=== PATIENT | female | born 1965 | race Caucasian/White ===

== ENCOUNTER 2024-10-10 15:56 | Inpatient (IN) | payer MEDICARE ==
[2024-10-10] MEDS ORDERED: Dextrose 50% Abboject 50 ML SYRINGE SLOW IVP PRN (16:30)
[2024-10-10] MEDS ORDERED: Glucagon 1 MG/ML KIT IM PRN (16:30)
[2024-10-10 18:30] VITALS: BMI 38.0
[2024-10-10] MEDS: Acetaminophen 325 MG TAB PO PRN (18:52)
[2024-10-10] MEDS: Cyclobenzaprine 10 MG TAB PO PRN (20:37)
[2024-10-10] MEDS: Gabapentin 300 MG CAP PO SCH (20:39)
[2024-10-10 20:58] LABS: #Basophils 0.05 10x3/uL (0.0-0.2); #Eosinophils 0.24 10x3/uL (0.0-0.7); #Monocytes 0.58 10x3/uL (0.11-0.59); #Neutrophils 3.24 10x3/uL (1.40-6.50); %Basophils 0.8 % (0.0-1.0); %Eosinophils 3.9 % (0.0-10.0); %Lymphocytes 32.5 % (21.0-51.0); %Monocytes 9.4 % (0.0-10.0); %Neutrophils 52.7 % (42.0-75.0); Hematocrit 39.9 % (36.0-47.0); Hemoglobin 12.5 g/dL (12.0-16.0); Mean Corpuscular Hemoglobin 28.8 pg (27.0-31.0); Mean Corpuscular Volume 91.9 fL (78.0-98.0); Platelet Count 306 10x3/uL (130-400); Red Blood Cell (RBC) Count 4.34 mill/uL (4.20-5.40); White Blood Cell (WBC) Count 6.15 10x3/uL (4.8-10.8)
[2024-10-10 21:14] LABS: CRP, High Sensitivity at Bryan 0.10 mg/dL (< or = 0.5)
[2024-10-10 21:15] LABS: ALT (SGPT) 22 U/L (Less than 34); AST (SGOT) 29 U/L (11-34); Albumin 3.3 g/dL (3.1-4.5); Alkaline Phosphatase 92 U/L (40-110); Anion Gap 15 mmol/L (10-20); BUN (Urea Nitrogen) 51 mg/dL (9.8-20.1); Bilirubin, Total 0.2 mg/dL (0.3-1.2); Calc. Creatinine Clearance 42 mL/min (70-130); Calcium 9.5 mg/dL (7.8-10.44); Carbon Dioxide 23 mmol/L (22-29); Cardiac Risk 5.7 (Less than 4.5); Chloride 105 mmol/L (98-107); Cholesterol 218 mg/dl (< 200 Desired); Globulin 2.9 g/dL (2.4-3.5); Glucose 224 mg/dL (70-105); HDL Cholesterol 38 mg/dL (>60 Neg Risk); LDL Cholesterol, Calculated 149 mg/dL; Potassium 5.3 mmol/L (3.5-5.1); Sodium 138 mmol/L (136-145); Triglycerides 153 mg/dL (Less than 150)
[2024-10-10] MEDS: Vancomycin (BATCH) 2.5 GM in Premix 1 BAG IVPB SCH (22:25)
[2024-10-10 22:53] LABS: Magnesium 1.7 mg/dL (1.6-2.6)
[2024-10-10] MEDS: HYDROcodone/Acetaminophen 5/325 mg Tablet PO SCH (23:05)
[2024-10-10 23:37] LABS: Anion Gap 18 mmol/L (10-20); BUN (Urea Nitrogen) 50 mg/dL (9.8-20.1); Calc. Creatinine Clearance 42 mL/min (70-130); Calcium 9.7 mg/dL (7.8-10.44); Carbon Dioxide 19 mmol/L (22-29); Chloride 105 mmol/L (98-107); Glucose 228 mg/dL (70-105); Potassium 5.0 mmol/L (3.5-5.1); Sodium 137 mmol/L (136-145)
[2024-10-11] MEDS: Metoprolol Succinate XL 50 MG ER.TAB PO SCH (05:17)
[2024-10-11 06:49] LABS: #Basophils 0.04 10x3/uL (0.0-0.2); #Eosinophils 0.33 10x3/uL (0.0-0.7); #Monocytes 0.57 10x3/uL (0.11-0.59); #Neutrophils 2.51 10x3/uL (1.40-6.50); %Basophils 0.7 % (0.0-1.0); %Eosinophils 6.1 % (0.0-10.0); %Lymphocytes 35.2 % (21.0-51.0); %Monocytes 10.6 % (0.0-10.0); %Neutrophils 46.8 % (42.0-75.0); Hematocrit 37.4 % (36.0-47.0); Hemoglobin 11.7 g/dL (12.0-16.0); Mean Corpuscular Hemoglobin 28.5 pg (27.0-31.0); Mean Corpuscular Volume 91.0 fL (78.0-98.0); Platelet Count 280 10x3/uL (130-400); Red Blood Cell (RBC) Count 4.11 mill/uL (4.20-5.40); White Blood Cell (WBC) Count 5.37 10x3/uL (4.8-10.8)
[2024-10-11 07:05] LABS: Vancomycin, Random 38.8 ug/mL (See Comment)
[2024-10-11 07:06] LABS: ALT (SGPT) 19 U/L (Less than 34); AST (SGOT) 25 U/L (11-34); Albumin 3.0 g/dL (3.1-4.5); Alkaline Phosphatase 82 U/L (40-110); Anion Gap 13 mmol/L (10-20); BUN (Urea Nitrogen) 51 mg/dL (9.8-20.1); Bilirubin, Total 0.2 mg/dL (0.3-1.2); Calc. Creatinine Clearance 50 mL/min (70-130); Calcium 8.7 mg/dL (7.8-10.44); Carbon Dioxide 24 mmol/L (22-29); Chloride 109 mmol/L (98-107); Globulin 2.6 g/dL (2.4-3.5); Glucose 124 mg/dL (70-105); Potassium 4.7 mmol/L (3.5-5.1); Sodium 141 mmol/L (136-145)
[2024-10-11] MEDS ORDERED: Enoxaparin 40 MG (0.4 mL) SYRINGE SC SCH (09:00)
[2024-10-11] MEDS: Heparin 5,000 UNITS/ML VIAL SC SCH (09:57)
[2024-10-11] MEDS ORDERED: fentaNYL PF 100 MCG/2 ML SYRINGE ONE (14:42)
[2024-10-11] MEDS ORDERED: PROPOFOL 20 ML ONE (14:42)
[2024-10-11] MEDS ORDERED: Lidocaine 1% PF 5 ML VIAL ONE (14:43)
[2024-10-11] MEDS ORDERED: Ondansetron PF 4 MG/2 ML Vial ONE (14:43)
[2024-10-11] MEDS ORDERED: Lidocaine 2% 6 ML (Jelly) SYR ONE (14:46)
[2024-10-11] MEDS ORDERED: SUCCINYLCHOLINE/SOD CL,ISO/PF 200 MG/10 ML SYRINGE FS ONE (14:49)
[2024-10-11] MEDS: Insulin Glargine 30 UNITS/0.3 ML VIAL SC SCH (20:22)
[2024-10-12 06:55] LABS: #Basophils 0.03 10x3/uL (0.0-0.2); #Eosinophils 0.07 10x3/uL (0.0-0.7); #Monocytes 0.47 10x3/uL (0.11-0.59); #Neutrophils 5.70 10x3/uL (1.40-6.50); %Basophils 0.4 % (0.0-1.0); %Eosinophils 0.9 % (0.0-10.0); %Lymphocytes 17.3 % (21.0-51.0); %Monocytes 6.2 % (0.0-10.0); %Neutrophils 74.8 % (42.0-75.0); Hematocrit 36.3 % (36.0-47.0); Hemoglobin 11.7 g/dL (12.0-16.0); Mean Corpuscular Hemoglobin 29.1 pg (27.0-31.0); Mean Corpuscular Volume 90.3 fL (78.0-98.0); Platelet Count 289 10x3/uL (130-400); Red Blood Cell (RBC) Count 4.02 mill/uL (4.20-5.40); White Blood Cell (WBC) Count 7.62 10x3/uL (4.8-10.8)
[2024-10-12 07:10] LABS: ALT (SGPT) 21 U/L (Less than 34); AST (SGOT) 29 U/L (11-34); Albumin 3.1 g/dL (3.1-4.5); Alkaline Phosphatase 78 U/L (40-110); Anion Gap 12 mmol/L (10-20); BUN (Urea Nitrogen) 32 mg/dL (9.8-20.1); Bilirubin, Total 0.2 mg/dL (0.3-1.2); Calc. Creatinine Clearance 62 mL/min (70-130); Calcium 8.1 mg/dL (7.8-10.44); Carbon Dioxide 24 mmol/L (22-29); Chloride 109 mmol/L (98-107); Globulin 2.6 g/dL (2.4-3.5); Glucose 131 mg/dL (70-105); Potassium 4.2 mmol/L (3.5-5.1); Sodium 141 mmol/L (136-145)
[2024-10-12 15:30] VITALS: BMI 38.0
[2024-10-12] MEDS: Heparin 5,000 UNITS/ML VIAL SC SCH (17:11)
[2024-10-13 06:02] LABS: #Basophils 0.04 10x3/uL (0.0-0.2); #Eosinophils 0.34 10x3/uL (0.0-0.7); #Monocytes 0.58 10x3/uL (0.11-0.59); #Neutrophils 2.93 10x3/uL (1.40-6.50); %Basophils 0.6 % (0.0-1.0); %Eosinophils 5.0 % (0.0-10.0); %Lymphocytes 42.3 % (21.0-51.0); %Monocytes 8.5 % (0.0-10.0); %Neutrophils 43.2 % (42.0-75.0); Hematocrit 38.1 % (36.0-47.0); Hemoglobin 12.1 g/dL (12.0-16.0); Mean Corpuscular Hemoglobin 28.9 pg (27.0-31.0); Mean Corpuscular Volume 90.9 fL (78.0-98.0); Platelet Count 273 10x3/uL (130-400); Red Blood Cell (RBC) Count 4.19 mill/uL (4.20-5.40); White Blood Cell (WBC) Count 6.79 10x3/uL (4.8-10.8)
[2024-10-13 06:11] LABS: ALT (SGPT) 21 U/L (Less than 34); AST (SGOT) 26 U/L (11-34); Albumin 3.2 g/dL (3.1-4.5); Alkaline Phosphatase 81 U/L (40-110); Anion Gap 16 mmol/L (10-20); BUN (Urea Nitrogen) 36 mg/dL (9.8-20.1); Bilirubin, Total 0.2 mg/dL (0.3-1.2); Calc. Creatinine Clearance 59 mL/min (70-130); Calcium 8.2 mg/dL (7.8-10.44); Carbon Dioxide 23 mmol/L (22-29); Chloride 108 mmol/L (98-107); Globulin 2.8 g/dL (2.4-3.5); Glucose 90 mg/dL (70-105); Potassium 3.9 mmol/L (3.5-5.1); Sodium 143 mmol/L (136-145)
[2024-10-13 06:16] LABS: Vancomycin, Random 16.4 ug/mL (See Comment)
[2024-10-13 08:05] VITALS: BP 150/80; TEMP 97.5
== END 2024-10-13 13:50 | disposition home or self-care (01) | DRG 617 ==
LOC: T4-A 15:56
PROVIDERS: ADMIT Student in an Organized Health Care Education/Training Program; ATTEND Student in an Organized Health Care Education/Training Program
PROC: 3E03329 Introduction of Other Anti-infective into Peripheral Vein, Percutaneous Approach (ICD-10-PCS; 2024-10-10)
PROC: 0Y6Y0Z1 Detachment at Left 5th Toe, High, Open Approach (ICD-10-PCS; principal; 2024-10-12)
DX: E11.69 Type 2 diabetes mellitus with other specified complication (principal); L97.819 Non-pressure chronic ulcer of other part of right lower leg with unspecified severity; M86.172 Other acute osteomyelitis, left ankle and foot; E11.621 Type 2 diabetes mellitus with foot ulcer; N17.9 Acute kidney failure, unspecified; E87.5 Hyperkalemia; N18.32 Chronic kidney disease, stage 3b; E11.22 Type 2 diabetes mellitus with diabetic chronic kidney disease; E11.65 Type 2 diabetes mellitus with hyperglycemia; E03.9 Hypothyroidism, unspecified; D50.9 Iron deficiency anemia, unspecified; Z89.432 Acquired absence of left foot; Z98.890 Other specified postprocedural states; Z79.899 Other long term (current) drug therapy; Z90.49 Acquired absence of other specified parts of digestive tract
CPT/HCPCS: 36415; 36416; 80053; 80061; 80202; 83036; 83605; 83735; 84100; 84443; 85025; 86141; 87040; 87070; 87205; 97139; J0665; J0692; J1100; J1644; J1815; J2405; J2704; J3010; J3373; J7030; J7050

== ENCOUNTER 2024-10-26 14:01 | Emergency (ER) | payer MEDICARE ==
[2024-10-26] MEDS ORDERED: Ondansetron PF 4 MG/2 ML Vial ONE (15:37)
[2024-10-26 15:45] LABS: #Basophils 0.05 10x3/uL (0.0-0.2); #Eosinophils 0.35 10x3/uL (0.0-0.7); #Monocytes 0.74 10x3/uL (0.11-0.59); #Neutrophils 5.02 10x3/uL (1.40-6.50); %Basophils 0.6 % (0.0-1.0); %Eosinophils 4.1 % (0.0-10.0); %Lymphocytes 26.8 % (21.0-51.0); %Monocytes 8.7 % (0.0-10.0); %Neutrophils 59.4 % (42.0-75.0); Hematocrit 38.0 % (36.0-47.0); Hemoglobin 12.2 g/dL (12.0-16.0); Mean Corpuscular Hemoglobin 29.0 pg (27.0-31.0); Mean Corpuscular Volume 90.5 fL (78.0-98.0); Platelet Count 244 10x3/uL (130-400); Red Blood Cell (RBC) Count 4.20 mill/uL (4.20-5.40); White Blood Cell (WBC) Count 8.46 10x3/uL (4.8-10.8)
[2024-10-26] MEDS ORDERED: Vancomycin 1 GM/200 ML (PREMIX FOIL) BAG ONE ×2 (15:57→17:07)
[2024-10-26 16:02] LABS: ALT (SGPT) 23 U/L (Less than 34); AST (SGOT) 25 U/L (11-34); Albumin 3.1 g/dL (3.1-4.5); Alkaline Phosphatase 116 U/L (40-110); Anion Gap 16 mmol/L (10-20); BUN (Urea Nitrogen) 62 mg/dL (9.8-20.1); Bilirubin, Total 0.3 mg/dL (0.3-1.2); Calc. Creatinine Clearance 0 mL/min (70-130); Calcium 9.0 mg/dL (7.8-10.44); Carbon Dioxide 22 mmol/L (22-29); Chloride 107 mmol/L (98-107); Globulin 3.1 g/dL (2.4-3.5); Glucose 86 mg/dL (70-105); Potassium 5.2 mmol/L (3.5-5.1); Sodium 140 mmol/L (136-145)
== END 2024-10-26 18:05 | disposition home or self-care (01) ==
LOC: ERS 14:01
DX: L03.032 Cellulitis of left toe (principal); I12.9 Hypertensive chronic kidney disease with stage 1 through stage 4 chronic kidney disease, or unspecified chronic kidney disease; E11.22 Type 2 diabetes mellitus with diabetic chronic kidney disease; N18.30 Chronic kidney disease, stage 3 unspecified; I25.2 Old myocardial infarction
CPT/HCPCS: 73630 ×2; 80053; 83605; 85025; 86141; 87070; 87205; 93005; J2270; J2405; J3372; 36415; 96365; 96366; 96375

== ENCOUNTER 2024-11-17 11:28 | Inpatient (IN) | payer MEDICARE ==
[2024-11-17 13:12] LABS: #Basophils 0.04 10x3/uL (0.0-0.2); #Eosinophils 0.41 10x3/uL (0.0-0.7); #Monocytes 0.72 10x3/uL (0.11-0.59); #Neutrophils 5.50 10x3/uL (1.40-6.50); %Basophils 0.5 % (0.0-1.0); %Eosinophils 4.7 % (0.0-10.0); %Lymphocytes 23.5 % (21.0-51.0); %Monocytes 8.2 % (0.0-10.0); %Neutrophils 62.6 % (42.0-75.0); Hematocrit 35.6 % (36.0-47.0); Hemoglobin 11.5 g/dL (12.0-16.0); Mean Corpuscular Hemoglobin 29.5 pg (27.0-31.0); Mean Corpuscular Volume 91.3 fL (78.0-98.0); Platelet Count 283 10x3/uL (130-400); Red Blood Cell (RBC) Count 3.90 mill/uL (4.20-5.40); White Blood Cell (WBC) Count 8.77 10x3/uL (4.8-10.8)
[2024-11-17] MEDS ORDERED: Ketorolac Tromethamine 30 MG (1 mL) VIAL ONE (13:17)
[2024-11-17] MEDS ORDERED: Ondansetron PF 4 MG/2 ML Vial ONE (13:17)
[2024-11-17 13:34] LABS: ALT (SGPT) 22 U/L (Less than 34); AST (SGOT) 37 U/L (11-34); Albumin 3.0 g/dL (3.1-4.5); Alkaline Phosphatase 107 U/L (40-110); Anion Gap 17 mmol/L (10-20); BUN (Urea Nitrogen) 57 mg/dL (9.8-20.1); Bilirubin, Total 0.3 mg/dL (0.3-1.2); Calc. Creatinine Clearance 0 mL/min (70-130); Calcium 9.2 mg/dL (7.8-10.44); Carbon Dioxide 24 mmol/L (22-29); Chloride 104 mmol/L (98-107); Globulin 3.4 g/dL (2.4-3.5); Glucose 209 mg/dL (70-105); Potassium 5.2 mmol/L (3.5-5.1); Sodium 140 mmol/L (136-145)
[2024-11-17] MEDS ORDERED: cefTRIAXone (ROCEPHIN) 1 GM VIAL ONE (13:57)
[2024-11-17] MEDS ORDERED: VANCOMYCIN 2 GRAM/400 ML BAG ONE (13:57)
[2024-11-17] MEDS ORDERED: Senokot S 8.6-50 MG TAB PO PRN (15:43)
[2024-11-17] MEDS ORDERED: Calcium Carbonate 500 MG ChewTAB PO PRN (15:43)
[2024-11-17] MEDS ORDERED: Dextrose 50% Abboject 50 ML SYRINGE SLOW IVP PRN (17:06)
[2024-11-17] MEDS ORDERED: Glucagon 1 MG/ML KIT IM PRN (17:06)
[2024-11-17] MEDS: LOKELMA 10 GM PACKET PO SCH (17:49)
[2024-11-17] MEDS ORDERED: Pharmacy to Dose: VANC IVPB PRN (19:05)
[2024-11-17] MEDS: Gabapentin 300 MG CAP PO SCH (21:04)
[2024-11-17] MEDS: Heparin 5,000 UNITS/ML VIAL SC SCH (21:05)
[2024-11-17] MEDS: Insulin Glargine 30 UNITS/0.3 ML VIAL SC SCH (21:05)
[2024-11-17 22:38] VITALS: BMI 36.3
[2024-11-18 06:24] LABS: #Basophils Less than 0.03 10x3/uL (0.0-0.2); #Eosinophils 0.50 10x3/uL (0.0-0.7); #Monocytes 0.58 10x3/uL (0.11-0.59); #Neutrophils 3.22 10x3/uL (1.40-6.50); %Basophils 0.3 % (0.0-1.0); %Eosinophils 8.4 % (0.0-10.0); %Lymphocytes 27.1 % (21.0-51.0); %Monocytes 9.7 % (0.0-10.0); %Neutrophils 54.0 % (42.0-75.0); Hematocrit 32.0 % (36.0-47.0); Hemoglobin 10.0 g/dL (12.0-16.0); Mean Corpuscular Hemoglobin 28.9 pg (27.0-31.0); Mean Corpuscular Volume 92.5 fL (78.0-98.0); Platelet Count 246 10x3/uL (130-400); Red Blood Cell (RBC) Count 3.46 mill/uL (4.20-5.40); White Blood Cell (WBC) Count 5.97 10x3/uL (4.8-10.8)
[2024-11-18 06:45] LABS: Vancomycin, Random 20.3 ug/mL (See Comment)
[2024-11-18 07:34] LABS: ALT (SGPT) 31 U/L (Less than 34); AST (SGOT) 46 U/L (11-34); Albumin 2.4 g/dL (3.1-4.5); Alkaline Phosphatase 98 U/L (40-110); Anion Gap 13 mmol/L (10-20); BUN (Urea Nitrogen) 53 mg/dL (9.8-20.1); Bilirubin, Total 0.3 mg/dL (0.3-1.2); Calc. Creatinine Clearance 41 mL/min (70-130); Calcium 8.2 mg/dL (7.8-10.44); Carbon Dioxide 25 mmol/L (22-29); Chloride 106 mmol/L (98-107); Globulin 2.4 g/dL (2.4-3.5); Glucose 71 mg/dL (70-105); Potassium 4.7 mmol/L (3.5-5.1); Sodium 139 mmol/L (136-145)
[2024-11-18] MEDS: Metoprolol Succinate XL 50 MG ER.TAB PO SCH (09:17)
[2024-11-18] MEDS: Lisinopril 20 MG TAB PO SCH (09:18)
[2024-11-18] MEDS: Cyclobenzaprine 10 MG TAB PO PRN (09:18)
[2024-11-18] MEDS: Acetaminophen 325 MG TAB PO PRN (09:18)
[2024-11-18 12:16] VITALS: BMI 36.3
[2024-11-19 06:22] LABS: #Basophils 0.04 10x3/uL (0.0-0.2); #Eosinophils 0.54 10x3/uL (0.0-0.7); #Monocytes 0.60 10x3/uL (0.11-0.59); #Neutrophils 2.55 10x3/uL (1.40-6.50); %Basophils 0.7 % (0.0-1.0); %Eosinophils 9.3 % (0.0-10.0); %Lymphocytes 35.7 % (21.0-51.0); %Monocytes 10.3 % (0.0-10.0); %Neutrophils 43.8 % (42.0-75.0); Hematocrit 33.0 % (36.0-47.0); Hemoglobin 10.2 g/dL (12.0-16.0); Mean Corpuscular Hemoglobin 29.0 pg (27.0-31.0); Mean Corpuscular Volume 93.8 fL (78.0-98.0); Platelet Count 263 10x3/uL (130-400); Red Blood Cell (RBC) Count 3.52 mill/uL (4.20-5.40); White Blood Cell (WBC) Count 5.82 10x3/uL (4.8-10.8)
[2024-11-19 06:51] LABS: Vancomycin, Random 19.5 ug/mL (See Comment)
[2024-11-19 07:00] LABS: ALT (SGPT) 23 U/L (Less than 34); AST (SGOT) 35 U/L (11-34); Albumin 2.5 g/dL (3.1-4.5); Alkaline Phosphatase 90 U/L (40-110); Anion Gap 12 mmol/L (10-20); BUN (Urea Nitrogen) 49 mg/dL (9.8-20.1); Bilirubin, Total 0.2 mg/dL (0.3-1.2); Calc. Creatinine Clearance 40 mL/min (70-130); Calcium 8.6 mg/dL (7.8-10.44); Carbon Dioxide 26 mmol/L (22-29); Chloride 106 mmol/L (98-107); Globulin 2.9 g/dL (2.4-3.5); Glucose 45 mg/dL (70-105); Potassium 4.8 mmol/L (3.5-5.1); Sodium 139 mmol/L (136-145)
[2024-11-19] MEDS: Insulin Glargine 30 UNITS/0.3 ML VIAL SC SCH (21:57)
[2024-11-20 06:35] LABS: #Basophils 0.04 10x3/uL (0.0-0.2); #Eosinophils 0.58 10x3/uL (0.0-0.7); #Monocytes 0.65 10x3/uL (0.11-0.59); #Neutrophils 4.25 10x3/uL (1.40-6.50); %Basophils 0.6 % (0.0-1.0); %Eosinophils 8.1 % (0.0-10.0); %Lymphocytes 22.2 % (21.0-51.0); %Monocytes 9.1 % (0.0-10.0); %Neutrophils 59.7 % (42.0-75.0); Hematocrit 36.2 % (36.0-47.0); Hemoglobin 11.6 g/dL (12.0-16.0); Mean Corpuscular Hemoglobin 29.0 pg (27.0-31.0); Mean Corpuscular Volume 90.5 fL (78.0-98.0); Platelet Count 298 10x3/uL (130-400); Red Blood Cell (RBC) Count 4.00 mill/uL (4.20-5.40); White Blood Cell (WBC) Count 7.12 10x3/uL (4.8-10.8)
[2024-11-20 06:49] LABS: Vancomycin, Random 21.5 ug/mL (See Comment)
[2024-11-20 06:51] LABS: ALT (SGPT) 12 U/L (Less than 34); AST (SGOT) 26 U/L (11-34); Albumin 2.7 g/dL (3.1-4.5); Alkaline Phosphatase 96 U/L (40-110); Anion Gap 14 mmol/L (10-20); BUN (Urea Nitrogen) 44 mg/dL (9.8-20.1); Bilirubin, Total 0.2 mg/dL (0.3-1.2); Calc. Creatinine Clearance 47 mL/min (70-130); Calcium 9.1 mg/dL (7.8-10.44); Carbon Dioxide 26 mmol/L (22-29); Chloride 104 mmol/L (98-107); Globulin 3.5 g/dL (2.4-3.5); Glucose 83 mg/dL (70-105); Potassium 4.8 mmol/L (3.5-5.1); Sodium 139 mmol/L (136-145)
[2024-11-20] MEDS: HYDROcodone/Acetaminophen 5/325 mg Tablet PO PRN (23:22)
[2024-11-21 04:49] LABS: #Basophils 0.03 10x3/uL (0.0-0.2); #Eosinophils 0.64 10x3/uL (0.0-0.7); #Monocytes 0.71 10x3/uL (0.11-0.59); #Neutrophils 3.31 10x3/uL (1.40-6.50); %Basophils 0.4 % (0.0-1.0); %Eosinophils 9.0 % (0.0-10.0); %Lymphocytes 34.0 % (21.0-51.0); %Monocytes 9.9 % (0.0-10.0); %Neutrophils 46.3 % (42.0-75.0); Hematocrit 32.1 % (36.0-47.0); Hemoglobin 10.0 g/dL (12.0-16.0); Mean Corpuscular Hemoglobin 28.9 pg (27.0-31.0); Mean Corpuscular Volume 92.8 fL (78.0-98.0); Platelet Count 281 10x3/uL (130-400); Red Blood Cell (RBC) Count 3.46 mill/uL (4.20-5.40); White Blood Cell (WBC) Count 7.15 10x3/uL (4.8-10.8)
[2024-11-21 05:20] LABS: ALT (SGPT) 19 U/L (Less than 34); AST (SGOT) 21 U/L (11-34); Albumin 2.5 g/dL (3.1-4.5); Alkaline Phosphatase 92 U/L (40-110); Anion Gap 15 mmol/L (10-20); BUN (Urea Nitrogen) 44 mg/dL (9.8-20.1); Bilirubin, Total 0.2 mg/dL (0.3-1.2); Calc. Creatinine Clearance 47 mL/min (70-130); Calcium 8.7 mg/dL (7.8-10.44); Carbon Dioxide 23 mmol/L (22-29); Chloride 105 mmol/L (98-107); Globulin 2.7 g/dL (2.4-3.5); Glucose 73 mg/dL (70-105); Potassium 4.7 mmol/L (3.5-5.1); Sodium 138 mmol/L (136-145)
[2024-11-22 05:38] LABS: #Basophils 0.05 10x3/uL (0.0-0.2); #Eosinophils 0.63 10x3/uL (0.0-0.7); #Monocytes 0.66 10x3/uL (0.11-0.59); #Neutrophils 3.35 10x3/uL (1.40-6.50); %Basophils 0.7 % (0.0-1.0); %Eosinophils 9.2 % (0.0-10.0); %Lymphocytes 30.8 % (21.0-51.0); %Monocytes 9.6 % (0.0-10.0); %Neutrophils 49.1 % (42.0-75.0); Hematocrit 32.7 % (36.0-47.0); Hemoglobin 10.4 g/dL (12.0-16.0); Mean Corpuscular Hemoglobin 28.9 pg (27.0-31.0); Mean Corpuscular Volume 90.8 fL (78.0-98.0); Platelet Count 294 10x3/uL (130-400); Red Blood Cell (RBC) Count 3.60 mill/uL (4.20-5.40); White Blood Cell (WBC) Count 6.84 10x3/uL (4.8-10.8)
[2024-11-22 05:54] LABS: ALT (SGPT) 16 U/L (Less than 34); AST (SGOT) 23 U/L (11-34); Albumin 2.6 g/dL (3.1-4.5); Alkaline Phosphatase 86 U/L (40-110); Anion Gap 13 mmol/L (10-20); BUN (Urea Nitrogen) 40 mg/dL (9.8-20.1); Bilirubin, Total 0.1 mg/dL (0.3-1.2); Calc. Creatinine Clearance 46 mL/min (70-130); Calcium 8.9 mg/dL (7.8-10.44); Carbon Dioxide 26 mmol/L (22-29); Chloride 107 mmol/L (98-107); Globulin 3.2 g/dL (2.4-3.5); Glucose 124 mg/dL (70-105); Potassium 4.7 mmol/L (3.5-5.1); Sodium 141 mmol/L (136-145)
[2024-11-22] MEDS: HYDROcodone/Acetaminophen 7.5/325 mg Tablet PO PRN (12:30)
[2024-11-23 06:05] LABS: #Basophils 0.06 10x3/uL (0.0-0.2); #Eosinophils 0.78 10x3/uL (0.0-0.7); #Monocytes 0.68 10x3/uL (0.11-0.59); #Neutrophils 3.04 10x3/uL (1.40-6.50); %Basophils 0.8 % (0.0-1.0); %Eosinophils 11.0 % (0.0-10.0); %Lymphocytes 34.7 % (21.0-51.0); %Monocytes 9.6 % (0.0-10.0); %Neutrophils 43.1 % (42.0-75.0); Hematocrit 33.9 % (36.0-47.0); Hemoglobin 10.5 g/dL (12.0-16.0); Mean Corpuscular Hemoglobin 28.5 pg (27.0-31.0); Mean Corpuscular Volume 91.9 fL (78.0-98.0); Platelet Count 294 10x3/uL (130-400); Red Blood Cell (RBC) Count 3.69 mill/uL (4.20-5.40); White Blood Cell (WBC) Count 7.08 10x3/uL (4.8-10.8)
[2024-11-23 06:27] LABS: Vancomycin, Random 22.3 ug/mL (See Comment)
[2024-11-23 06:28] LABS: CRP, High Sensitivity at Bryan 1.83 mg/dL (< or = 0.5)
[2024-11-23 06:29] LABS: ALT (SGPT) 17 U/L (Less than 34); AST (SGOT) 26 U/L (11-34); Albumin 2.6 g/dL (3.1-4.5); Alkaline Phosphatase 87 U/L (40-110); Anion Gap 14 mmol/L (10-20); BUN (Urea Nitrogen) 41 mg/dL (9.8-20.1); Bilirubin, Total 0.1 mg/dL (0.3-1.2); Calc. Creatinine Clearance 45 mL/min (70-130); Calcium 8.9 mg/dL (7.8-10.44); Carbon Dioxide 23 mmol/L (22-29); Chloride 109 mmol/L (98-107); Globulin 3.3 g/dL (2.4-3.5); Glucose 108 mg/dL (70-105); Potassium 4.7 mmol/L (3.5-5.1); Sodium 141 mmol/L (136-145)
[2024-11-24 05:27] LABS: #Basophils 0.05 10x3/uL (0.0-0.2); #Eosinophils 0.71 10x3/uL (0.0-0.7); #Monocytes 0.59 10x3/uL (0.11-0.59); #Neutrophils 2.85 10x3/uL (1.40-6.50); %Basophils 0.7 % (0.0-1.0); %Eosinophils 10.3 % (0.0-10.0); %Lymphocytes 37.5 % (21.0-51.0); %Monocytes 8.6 % (0.0-10.0); %Neutrophils 41.3 % (42.0-75.0); Hematocrit 36.2 % (36.0-47.0); Hemoglobin 11.1 g/dL (12.0-16.0); Mean Corpuscular Hemoglobin 28.8 pg (27.0-31.0); Mean Corpuscular Volume 94.0 fL (78.0-98.0); Platelet Count 328 10x3/uL (130-400); Red Blood Cell (RBC) Count 3.85 mill/uL (4.20-5.40); White Blood Cell (WBC) Count 6.90 10x3/uL (4.8-10.8)
[2024-11-24 05:37] VITALS: TEMP 97.5
[2024-11-24 06:05] LABS: ALT (SGPT) 15 U/L (Less than 34); AST (SGOT) 25 U/L (11-34); Albumin 2.8 g/dL (3.1-4.5); Alkaline Phosphatase 107 U/L (40-110); Anion Gap 12 mmol/L (10-20); BUN (Urea Nitrogen) 43 mg/dL (9.8-20.1); Bilirubin, Total 0.2 mg/dL (0.3-1.2); Calc. Creatinine Clearance 42 mL/min (70-130); Calcium 9.1 mg/dL (7.8-10.44); Carbon Dioxide 25 mmol/L (22-29); Chloride 108 mmol/L (98-107); Globulin 3.5 g/dL (2.4-3.5); Glucose 84 mg/dL (70-105); Potassium 4.8 mmol/L (3.5-5.1); Sodium 140 mmol/L (136-145)
[2024-11-24 16:07] VITALS: BP 112/73
== END 2024-11-24 19:30 | disposition home or self-care (01) | DRG 638 ==
LOC: ERS 11:28 → SURG B 15:53
PROVIDERS: ADMIT Family Medicine; ATTEND Family Medicine
DX: E11.69 Type 2 diabetes mellitus with other specified complication (principal); M86.8X7 Other osteomyelitis, ankle and foot; N17.9 Acute kidney failure, unspecified; E11.22 Type 2 diabetes mellitus with diabetic chronic kidney disease; I12.9 Hypertensive chronic kidney disease with stage 1 through stage 4 chronic kidney disease, or unspecified chronic kidney disease; E03.9 Hypothyroidism, unspecified; E11.42 Type 2 diabetes mellitus with diabetic polyneuropathy; E87.5 Hyperkalemia; N18.32 Chronic kidney disease, stage 3b; E11.649 Type 2 diabetes mellitus with hypoglycemia without coma; R74.01 Elevation of levels of liver transaminase levels; E88.09 Other disorders of plasma-protein metabolism, not elsewhere classified; L08.9 Local infection of the skin and subcutaneous tissue, unspecified; Z86.73 Personal history of transient ischemic attack (TIA), and cerebral infarction without residual deficits; Z98.84 Bariatric surgery status; Z89.422 Acquired absence of other left toe(s); Z89.421 Acquired absence of other right toe(s); Z88.5 Allergy status to narcotic agent; Z88.8 Allergy status to other drugs, medicaments and biological substances; Z88.2 Allergy status to sulfonamides; Z79.4 Long term (current) use of insulin; Z86.14 Personal history of Methicillin resistant Staphylococcus aureus infection; Z79.899 Other long term (current) drug therapy; Z79.890 Hormone replacement therapy
CPT/HCPCS: 36415; 36416; 80053; 80202; 85025; 86141; 87040; 93306; 96365; 96366; 96367; 96375; 97139; J0692; J0696; J1644; J1815; J1885; J3373; J3375; J7050; J7120

== ENCOUNTER 2024-11-26 20:07 | Emergency (ER) | payer MEDICARE | END 2024-11-26 22:13 | disposition home or self-care (01) | LOC: ERS 20:07 | DX: T82.598A Other mechanical complication of other cardiac and vascular devices and implants, initial encounter (principal); I10 Essential (primary) hypertension; E11.9 Type 2 diabetes mellitus without complications | CPT/HCPCS: 99283 ==

== ENCOUNTER 2024-12-30 17:04 | Inpatient (IN) | payer MEDICARE ==
[2024-12-30] MEDS ORDERED: Ondansetron PF 4 MG/2 ML Vial IVP PRN (19:11)
[2024-12-30] MEDS ORDERED: Dextrose 50% Abboject 50 ML SYRINGE SLOW IVP PRN (19:28)
[2024-12-30] MEDS ORDERED: Glucagon 1 MG/ML KIT IM PRN (19:28)
[2024-12-30] MEDS: Insulin Glargine 30 UNITS/0.3 ML VIAL SC SCH (22:20)
[2024-12-31 00:35] VITALS: BMI 38.7
[2024-12-31 04:47] LABS: #Basophils 0.05 10x3/uL (0.0-0.2); #Eosinophils 0.49 10x3/uL (0.0-0.7); #Monocytes 0.80 10x3/uL (0.11-0.59); #Neutrophils 5.19 10x3/uL (1.40-6.50); %Basophils 0.6 % (0.0-1.0); %Eosinophils 5.5 % (0.0-10.0); %Lymphocytes 25.8 % (21.0-51.0); %Monocytes 8.9 % (0.0-10.0); %Neutrophils 57.8 % (42.0-75.0); Hematocrit 35.4 % (36.0-47.0); Hemoglobin 11.0 g/dL (12.0-16.0); Mean Corpuscular Hemoglobin 27.4 pg (27.0-31.0); Mean Corpuscular Volume 88.3 fL (78.0-98.0); Platelet Count 452 10x3/uL (130-400); Red Blood Cell (RBC) Count 4.01 mill/uL (4.20-5.40); White Blood Cell (WBC) Count 8.98 10x3/uL (4.8-10.8)
[2024-12-31 05:08] LABS: ALT (SGPT) 31 U/L (Less than 34); AST (SGOT) 89 U/L (11-34); Albumin 2.2 g/dL (3.1-4.5); Alkaline Phosphatase 94 U/L (40-110); Anion Gap 15 mmol/L (10-20); BUN (Urea Nitrogen) 61 mg/dL (9.8-20.1); Bilirubin, Total 0.3 mg/dL (0.3-1.2); CK (CPK) 1660 U/L (29-168); Calc. Creatinine Clearance 42 mL/min (70-130); Calcium 9.2 mg/dL (7.8-10.44); Carbon Dioxide 22 mmol/L (22-29); Chloride 107 mmol/L (98-107); Globulin 3.9 g/dL (2.4-3.5); Glucose 72 mg/dL (70-105); Potassium 4.6 mmol/L (3.5-5.1); Sodium 139 mmol/L (136-145)
[2024-12-31] MEDS: Enoxaparin 30 MG (0.3 mL) SYRINGE SC SCH (09:17)
[2024-12-31] MEDS: Metoprolol Succinate XL 50 MG ER.TAB PO SCH (09:17)
[2024-12-31] MEDS: Aspirin 81 mg Enteric Coated Tablet PO SCH (09:17)
[2024-12-31] MEDS: Calcitriol 0.25 MCG CAP PO SCH (09:17)
[2024-12-31] MEDS: PNEUMOC 20-VAL CONJ-DIP CRM/PF 0.5 ML SYRINGE IM ONE (11:50)
[2024-12-31] MEDS: FLU (Fluarix Triv) 25-26 (6MOS UP)/PF 45 MCG/0.5 ML Syringe IM ONE (11:50)
[2024-12-31 16:19] LABS: Urea Nitrogen, Random Urine 341.0 mg/dl
[2024-12-31 16:25] LABS: Bacteria/HPF 4+ HPF (None Seen); Glucose, Urine (Dipstick) Normal (Negative); Leukocyte 500 Leu/uL (Negative); Protein, Urine (Dipstick) 30 mg/dL (Neg-Trace); Specific Gravity, Urine 1.008 (1.002-1.036); WBC/HPF Greater than 50 HPF (0-3)
[2024-12-31] MEDS ORDERED: Vancomycin Dose by Levels Sliding Scale (Wt > 99) FS SCH (17:45)
[2024-12-31] MEDS: Vancomycin (BATCH) 2.5 GM in Premix 1 BAG IVPB SCH (18:06)
[2024-12-31] MEDS: Cyclobenzaprine 10 MG TAB PO PRN (20:17)
[2024-12-31] MEDS: Acetaminophen 325 MG TAB PO PRN (20:17)
[2024-12-31] MEDS: Insulin Glargine 30 UNITS/0.3 ML VIAL SC SCH (20:24)
[2024-12-31] MEDS ORDERED: Vancomycin 1 GM in Sodium Chloride 0.9% 250 ML 250 ML IVPB SCH (21:00)
[2025-01-01 04:46] LABS: #Basophils 0.05 10x3/uL (0.0-0.2); #Eosinophils 0.28 10x3/uL (0.0-0.7); #Monocytes 0.68 10x3/uL (0.11-0.59); #Neutrophils 5.38 10x3/uL (1.40-6.50); %Basophils 0.6 % (0.0-1.0); %Eosinophils 3.5 % (0.0-10.0); %Lymphocytes 20.3 % (21.0-51.0); %Monocytes 8.4 % (0.0-10.0); %Neutrophils 66.3 % (42.0-75.0); Hematocrit 34.8 % (36.0-47.0); Hemoglobin 11.6 g/dL (12.0-16.0); Mean Corpuscular Hemoglobin 28.5 pg (27.0-31.0); Mean Corpuscular Volume 85.5 fL (78.0-98.0); Platelet Count 471 10x3/uL (130-400); Red Blood Cell (RBC) Count 4.07 mill/uL (4.20-5.40); White Blood Cell (WBC) Count 8.11 10x3/uL (4.8-10.8)
[2025-01-01 05:23] LABS: ALT (SGPT) 27 U/L (Less than 34); AST (SGOT) 69 U/L (11-34); Albumin 2.1 g/dL (3.1-4.5); Alkaline Phosphatase 85 U/L (40-110); Anion Gap 14 mmol/L (10-20); BUN (Urea Nitrogen) 36 mg/dL (9.8-20.1); Bilirubin, Total 0.3 mg/dL (0.3-1.2); CK (CPK) 783 U/L (29-168); Calc. Creatinine Clearance 65 mL/min (70-130); Calcium 9.3 mg/dL (7.8-10.44); Carbon Dioxide 22 mmol/L (22-29); Chloride 108 mmol/L (98-107); Globulin 3.8 g/dL (2.4-3.5); Glucose 49 mg/dL (70-105); Potassium 4.4 mmol/L (3.5-5.1); Sodium 140 mmol/L (136-145)
[2025-01-01] MEDS ORDERED: Dextrose 50% Abboject 50 ML SYRINGE SLOW IVP PRN (05:39)
[2025-01-01] MEDS ORDERED: Glucagon 1 MG/ML KIT IM PRN (05:39)
[2025-01-01] MEDS ORDERED: Losartan 25 MG TAB PO SCH (09:00)
[2025-01-01 18:14] LABS: Vancomycin, Trough 22.9 ug/mL
[2025-01-01] MEDS: HYDROcodone/Acetaminophen 5/325 mg Tablet PO SCH (21:41)
[2025-01-02 04:24] LABS: #Basophils 0.04 10x3/uL (0.0-0.2); #Eosinophils 0.21 10x3/uL (0.0-0.7); #Monocytes 0.63 10x3/uL (0.11-0.59); #Neutrophils 5.05 10x3/uL (1.40-6.50); %Basophils 0.5 % (0.0-1.0); %Eosinophils 2.7 % (0.0-10.0); %Lymphocytes 21.4 % (21.0-51.0); %Monocytes 8.2 % (0.0-10.0); %Neutrophils 66.0 % (42.0-75.0); Hematocrit 37.8 % (36.0-47.0); Hemoglobin 11.7 g/dL (12.0-16.0); Mean Corpuscular Hemoglobin 26.8 pg (27.0-31.0); Mean Corpuscular Volume 86.7 fL (78.0-98.0); Platelet Count 485 10x3/uL (130-400); Red Blood Cell (RBC) Count 4.36 mill/uL (4.20-5.40); White Blood Cell (WBC) Count 7.66 10x3/uL (4.8-10.8)
[2025-01-02 04:26] LABS: Vancomycin, Random 27.5 ug/mL (See Comment)
[2025-01-02 04:48] LABS: ALT (SGPT) 27 U/L (Less than 34); AST (SGOT) 50 U/L (11-34); Albumin 2.1 g/dL (3.1-4.5); Alkaline Phosphatase 89 U/L (40-110); Anion Gap 13 mmol/L (10-20); BUN (Urea Nitrogen) 26 mg/dL (9.8-20.1); Bilirubin, Total 0.2 mg/dL (0.3-1.2); CK (CPK) 301 U/L (29-168); Calc. Creatinine Clearance 61 mL/min (70-130); Calcium 8.7 mg/dL (7.8-10.44); Carbon Dioxide 24 mmol/L (22-29); Chloride 106 mmol/L (98-107); Globulin 3.2 g/dL (2.4-3.5); Glucose 46 mg/dL (70-105); Potassium 4.7 mmol/L (3.5-5.1); Sodium 138 mmol/L (136-145)
[2025-01-02] MEDS: Lisinopril 20 MG TAB PO SCH (08:28)
[2025-01-02] MEDS: Enoxaparin 40 MG (0.4 mL) SYRINGE SC SCH (08:29)
[2025-01-02] MEDS ORDERED: Semaglutide [Ozempic] 0.25 MG/0.368 ML Pen.Injctr SC SCH (09:00)
[2025-01-02 09:17] VITALS: BMI 38.7
[2025-01-02] MEDS: HYDROcodone/Acetaminophen 5/325 mg Tablet PO SCH (11:14)
[2025-01-02] MEDS: Insulin Glargine 30 UNITS/0.3 ML VIAL SC SCH (21:57)
[2025-01-02] MEDS ORDERED: Calcium Carbonate 500 MG ChewTAB PO PRN (23:36)
[2025-01-03 04:07] LABS: #Basophils 0.08 10x3/uL (0.0-0.2); #Eosinophils 0.35 10x3/uL (0.0-0.7); #Monocytes 0.75 10x3/uL (0.11-0.59); #Neutrophils 5.56 10x3/uL (1.40-6.50); %Basophils 0.9 % (0.0-1.0); %Eosinophils 4.0 % (0.0-10.0); %Lymphocytes 21.5 % (21.0-51.0); %Monocytes 8.6 % (0.0-10.0); %Neutrophils 63.7 % (42.0-75.0); Hematocrit 37.6 % (36.0-47.0); Hemoglobin 12.2 g/dL (12.0-16.0); Mean Corpuscular Hemoglobin 28.0 pg (27.0-31.0); Mean Corpuscular Volume 86.4 fL (78.0-98.0); Platelet Count 447 10x3/uL (130-400); Red Blood Cell (RBC) Count 4.35 mill/uL (4.20-5.40); White Blood Cell (WBC) Count 8.73 10x3/uL (4.8-10.8)
[2025-01-03 04:24] LABS: ALT (SGPT) 21 U/L (Less than 34); AST (SGOT) 42 U/L (11-34); Albumin 2.2 g/dL (3.1-4.5); Alkaline Phosphatase 92 U/L (40-110); Anion Gap 15 mmol/L (10-20); BUN (Urea Nitrogen) 29 mg/dL (9.8-20.1); Bilirubin, Total 0.2 mg/dL (0.3-1.2); Calc. Creatinine Clearance 57 mL/min (70-130); Calcium 9.3 mg/dL (7.8-10.44); Carbon Dioxide 24 mmol/L (22-29); Chloride 104 mmol/L (98-107); Globulin 3.9 g/dL (2.4-3.5); Glucose 149 mg/dL (70-105); Potassium 4.8 mmol/L (3.5-5.1); Sodium 138 mmol/L (136-145)
[2025-01-03] MEDS: Gabapentin 300 MG CAP PO SCH (09:09)
[2025-01-03] MEDS: HYDROcodone/Acetaminophen 5/325 mg Tablet PO PRN (09:14)
[2025-01-04 05:27] LABS: #Basophils 0.05 10x3/uL (0.0-0.2); #Eosinophils 0.56 10x3/uL (0.0-0.7); #Monocytes 0.87 10x3/uL (0.11-0.59); #Neutrophils 4.89 10x3/uL (1.40-6.50); %Basophils 0.6 % (0.0-1.0); %Eosinophils 6.4 % (0.0-10.0); %Lymphocytes 25.4 % (21.0-51.0); %Monocytes 9.9 % (0.0-10.0); %Neutrophils 55.6 % (42.0-75.0); Hematocrit 35.6 % (36.0-47.0); Hemoglobin 11.2 g/dL (12.0-16.0); Mean Corpuscular Hemoglobin 27.7 pg (27.0-31.0); Mean Corpuscular Volume 88.1 fL (78.0-98.0); Platelet Count 400 10x3/uL (130-400); Red Blood Cell (RBC) Count 4.04 mill/uL (4.20-5.40); White Blood Cell (WBC) Count 8.78 10x3/uL (4.8-10.8)
[2025-01-04 05:48] LABS: ALT (SGPT) 17 U/L (Less than 34); AST (SGOT) 25 U/L (11-34); Albumin 2.1 g/dL (3.1-4.5); Alkaline Phosphatase 93 U/L (40-110); Anion Gap 14 mmol/L (10-20); BUN (Urea Nitrogen) 32 mg/dL (9.8-20.1); Bilirubin, Total 0.2 mg/dL (0.3-1.2); Calc. Creatinine Clearance 44 mL/min (70-130); Calcium 8.7 mg/dL (7.8-10.44); Carbon Dioxide 25 mmol/L (22-29); Chloride 101 mmol/L (98-107); Globulin 3.7 g/dL (2.4-3.5); Glucose 127 mg/dL (70-105); Potassium 4.5 mmol/L (3.5-5.1); Sodium 135 mmol/L (136-145); Vancomycin, Random 27.5 ug/mL (See Comment)
[2025-01-04] MEDS ORDERED: Vancomycin Dose by Levels Sliding Scale (Wt > 99) FS SCH (10:30)
[2025-01-05 06:44] LABS: #Basophils 0.06 10x3/uL (0.0-0.2); #Eosinophils 0.63 10x3/uL (0.0-0.7); #Monocytes 0.95 10x3/uL (0.11-0.59); #Neutrophils 3.95 10x3/uL (1.40-6.50); %Basophils 0.7 % (0.0-1.0); %Eosinophils 7.3 % (0.0-10.0); %Lymphocytes 32.9 % (21.0-51.0); %Monocytes 11.0 % (0.0-10.0); %Neutrophils 45.6 % (42.0-75.0); Hematocrit 36.8 % (36.0-47.0); Hemoglobin 11.6 g/dL (12.0-16.0); Mean Corpuscular Hemoglobin 27.7 pg (27.0-31.0); Mean Corpuscular Volume 87.8 fL (78.0-98.0); Platelet Count 362 10x3/uL (130-400); Red Blood Cell (RBC) Count 4.19 mill/uL (4.20-5.40); White Blood Cell (WBC) Count 8.66 10x3/uL (4.8-10.8)
[2025-01-05 07:08] LABS: ALT (SGPT) 14 U/L (Less than 34); AST (SGOT) 24 U/L (11-34); Albumin 2.0 g/dL (3.1-4.5); Alkaline Phosphatase 84 U/L (40-110); Anion Gap 12 mmol/L (10-20); BUN (Urea Nitrogen) 42 mg/dL (9.8-20.1); Bilirubin, Total 0.1 mg/dL (0.3-1.2); Calc. Creatinine Clearance 41 mL/min (70-130); Calcium 8.8 mg/dL (7.8-10.44); Carbon Dioxide 25 mmol/L (22-29); Chloride 101 mmol/L (98-107); Globulin 3.6 g/dL (2.4-3.5); Glucose 137 mg/dL (70-105); Potassium 4.9 mmol/L (3.5-5.1); Sodium 133 mmol/L (136-145)
[2025-01-05 08:01] LABS: Vancomycin, Trough 15.6 ug/mL
[2025-01-05] MEDS: Vancomycin HCl 750 MG in Sodium Chloride 0.9% 250 ML 250 ML IVPB SCH (10:39)
[2025-01-05] MEDS: Fluconazole 100 MG TAB PO SCH (13:25)
[2025-01-06 05:32] LABS: #Basophils 0.09 10x3/uL (0.0-0.2); #Eosinophils 0.61 10x3/uL (0.0-0.7); #Monocytes 0.94 10x3/uL (0.11-0.59); #Neutrophils 3.79 10x3/uL (1.40-6.50); %Basophils 1.0 % (0.0-1.0); %Eosinophils 7.0 % (0.0-10.0); %Lymphocytes 33.5 % (21.0-51.0); %Monocytes 10.8 % (0.0-10.0); %Neutrophils 43.8 % (42.0-75.0); Hematocrit 34.5 % (36.0-47.0); Hemoglobin 10.8 g/dL (12.0-16.0); Mean Corpuscular Hemoglobin 27.5 pg (27.0-31.0); Mean Corpuscular Volume 87.8 fL (78.0-98.0); Platelet Count 355 10x3/uL (130-400); Red Blood Cell (RBC) Count 3.93 mill/uL (4.20-5.40); White Blood Cell (WBC) Count 8.68 10x3/uL (4.8-10.8)
[2025-01-06 05:46] LABS: ALT (SGPT) 14 U/L (Less than 34); AST (SGOT) 23 U/L (11-34); Albumin 2.0 g/dL (3.1-4.5); Alkaline Phosphatase 84 U/L (40-110); Anion Gap 12 mmol/L (10-20); BUN (Urea Nitrogen) 46 mg/dL (9.8-20.1); Bilirubin, Total 0.1 mg/dL (0.3-1.2); Calc. Creatinine Clearance 43 mL/min (70-130); Calcium 8.5 mg/dL (7.8-10.44); Carbon Dioxide 27 mmol/L (22-29); Chloride 101 mmol/L (98-107); Globulin 3.3 g/dL (2.4-3.5); Glucose 142 mg/dL (70-105); Potassium 4.7 mmol/L (3.5-5.1); Sodium 135 mmol/L (136-145)
[2025-01-06 07:18] VITALS: BP 124/77; TEMP 97.6
[2025-01-06] MEDS: Losartan 25 MG TAB PO SCH (09:22)
[2025-01-06] MEDS: Enoxaparin 30 MG (0.3 mL) SYRINGE SC SCH (09:24)
[2025-01-06 11:32] LABS: Vancomycin, Trough 11.2 ug/mL
[2025-01-06] MEDS: Vancomycin 1 GM in Premix 1 BAG IVPB SCH (12:36)
== END 2025-01-06 13:25 | disposition short-term general hospital (02) | DRG 638 ==
LOC: 2NO 17:54 → OBSVTOIN 12-31 09:16 → T4-B 01-03 14:05
PROVIDERS: ADMIT Student in an Organized Health Care Education/Training Program; ATTEND Student in an Organized Health Care Education/Training Program
PROC: 3E02340 Introduction of Influenza Vaccine into Muscle, Percutaneous Approach (ICD-10-PCS; principal; 2024-12-31)
PROC: 3E0234Z Introduction of Serum, Toxoid and Vaccine into Muscle, Percutaneous Approach (ICD-10-PCS; 2024-12-31)
PROC: 3E03329 Introduction of Other Anti-infective into Peripheral Vein, Percutaneous Approach (ICD-10-PCS; 2024-12-31)
DX: E11.69 Type 2 diabetes mellitus with other specified complication (principal); E87.20 Acidosis, unspecified; I69.951 Hemiplegia and hemiparesis following unspecified cerebrovascular disease affecting right dominant side; L97.818 Non-pressure chronic ulcer of other part of right lower leg with other specified severity; M62.82 Rhabdomyolysis; M86.8X7 Other osteomyelitis, ankle and foot; N39.0 Urinary tract infection, site not specified; E11.51 Type 2 diabetes mellitus with diabetic peripheral angiopathy without gangrene; N17.9 Acute kidney failure, unspecified; N18.4 Chronic kidney disease, stage 4 (severe); E11.42 Type 2 diabetes mellitus with diabetic polyneuropathy; E03.9 Hypothyroidism, unspecified; I12.9 Hypertensive chronic kidney disease with stage 1 through stage 4 chronic kidney disease, or unspecified chronic kidney disease; E11.622 Type 2 diabetes mellitus with other skin ulcer; N76.0 Acute vaginitis; E87.6 Hypokalemia; E87.8 Other disorders of electrolyte and fluid balance, not elsewhere classified; E11.22 Type 2 diabetes mellitus with diabetic chronic kidney disease; R82.71 Bacteriuria; Z95.818 Presence of other cardiac implants and grafts; Z88.2 Allergy status to sulfonamides; Z88.8 Allergy status to other drugs, medicaments and biological substances; Z88.5 Allergy status to narcotic agent; Z89.421 Acquired absence of other right toe(s); Z79.899 Other long term (current) drug therapy; Z79.4 Long term (current) use of insulin; Z79.890 Hormone replacement therapy; Z79.891 Long term (current) use of opiate analgesic; Z79.02 Long term (current) use of antithrombotics/antiplatelets; Z79.82 Long term (current) use of aspirin; Z23 Encounter for immunization
CPT/HCPCS: 36415; 36416; 80053; 80202; 81003; 81015; 82085; 82550; 82570; 84540; 85025; 85610; 86141; 87077; 87086; 87186; 93005; 96374; 96376; 97139; G0378; J0692; J1650; J1815; J2185; J2270; J3010; J3373; J7050; J7120

== ENCOUNTER 2025-02-16 17:27 | Emergency (ER) | payer MEDICARE ==
[2025-02-16] MEDS ORDERED: Ketorolac Tromethamine 30 MG (1 mL) VIAL ONE (17:56)
[2025-02-16 18:32] LABS: #Basophils 0.05 10x3/uL (0.0-0.2); #Eosinophils 0.74 10x3/uL (0.0-0.7); #Monocytes 0.77 10x3/uL (0.11-0.59); #Neutrophils 3.92 10x3/uL (1.40-6.50); %Basophils 0.6 % (0.0-1.0); %Eosinophils 9.4 % (0.0-10.0); %Lymphocytes 29.8 % (21.0-51.0); %Monocytes 9.8 % (0.0-10.0); %Neutrophils 50.1 % (42.0-75.0); Hematocrit 36.9 % (36.0-47.0); Hemoglobin 11.9 g/dL (12.0-16.0); Mean Corpuscular Hemoglobin 27.4 pg (27.0-31.0); Mean Corpuscular Volume 84.8 fL (78.0-98.0); Platelet Count 311 10x3/uL (130-400); Red Blood Cell (RBC) Count 4.35 mill/uL (4.20-5.40); White Blood Cell (WBC) Count 7.84 10x3/uL (4.8-10.8)
[2025-02-16 18:34] LABS: Bacteria/HPF None Seen HPF (None Seen); CAUTI Indications for Culture Alt mental st,lethar; Glucose, Urine (Dipstick) 200 mg/dL (Negative); Leukocyte Negative Leu/uL (Negative); Protein, Urine (Dipstick) 10 mg/dL (Neg-Trace); RBC/HPF None Seen HPF (0-3); Specific Gravity, Urine 1.005 (1.002-1.036); WBC/HPF None Seen HPF (0-3)
[2025-02-16 18:36] LABS: Urine Culture Reflex No No
[2025-02-16 19:04] LABS: ALT (SGPT) 16 U/L (Less than 34); AST (SGOT) 30 U/L (11-34); Albumin 3.2 g/dL (3.1-4.5); Alkaline Phosphatase 133 U/L (40-110); Anion Gap 20 mmol/L (10-20); BUN (Urea Nitrogen) 36 mg/dL (9.8-20.1); Bilirubin, Total 0.2 mg/dL (0.3-1.2); Calc. Creatinine Clearance 0 mL/min (70-130); Calcium 8.8 mg/dL (7.8-10.44); Carbon Dioxide 31 mmol/L (22-29); Chloride 93 mmol/L (98-107); Globulin 3.1 g/dL (2.4-3.5); Glucose 220 mg/dL (70-105); Potassium 3.4 mmol/L (3.5-5.1); Sodium 141 mmol/L (136-145)
[2025-02-16] MEDS ORDERED: HYDROmorphone 0.5 MG/0.5 ML SYRINGE ONE (19:17)
[2025-02-16] MEDS ORDERED: VANCOMYCIN 2 GRAM/400 ML Premix BAG IVPB SCH (21:15)
[2025-02-17] MEDS ORDERED: HYDROmorphone 0.5 MG/0.5 ML SYRINGE ONE (00:18)
== END 2025-02-17 01:16 | disposition short-term general hospital (02) ==
LOC: ERS 17:27
DX: L03.115 Cellulitis of right lower limb (principal); E11.22 Type 2 diabetes mellitus with diabetic chronic kidney disease; I12.9 Hypertensive chronic kidney disease with stage 1 through stage 4 chronic kidney disease, or unspecified chronic kidney disease; N18.30 Chronic kidney disease, stage 3 unspecified; Z86.73 Personal history of transient ischemic attack (TIA), and cerebral infarction without residual deficits
CPT/HCPCS: 73590; 73630; 80053; 81001; 83605; 85025; 86141; 87040; 96365; 96366; 96367; 96375; 96376; 99284; J1171 ×2; J1885; J2543; J3010; J3375; 36415